=== PATIENT | male | born 1975 | race Caucasian/White ===

== ENCOUNTER 2021-03-30 06:31 | Day surgery (SDC) | payer OTHER ==
[2021-03-30] MEDS ORDERED: LIDOCAINE HCL 2% 100 MG/5 ML IJ ONE (06:32)
[2021-03-30] MEDS ORDERED: DIPRIVAN 200 MG/20 ML IV ONE (08:00)
--- NOTE | 2021-03-30 10:19 | XRAY ---
Indication: Bilateral L4-S1 MBB. Intraoperative fluoroscopy provided for 15 seconds. Single digital spot image submitted for interpretation demonstrates posterior needle tips projecting over the expected left and right L4-S1 nerve roots. Correlate with intraoperative findings/report. Incidental bilateral L4-S1 facet screws.
--- NOTE | 2021-03-30 10:23 | XRAY ---
15 seconds fluoroscopy time in surgery for bilateral L4-S1 MBB..
[2021-03-30] MEDS ORDERED: Lactated Ringers 1,000 ML IV ONE (17:23)
== END 2021-03-30 08:26 | disposition home or self-care (01) ==
LOC: SDC-PAIN 06:31
PROVIDERS: ATTEND Psychiatry & Neurology Pain Medicine
DX: M47.816 Spondylosis without myelopathy or radiculopathy, lumbar region (principal); I10 Essential (primary) hypertension; J45.909 Unspecified asthma, uncomplicated; M19.90 Unspecified osteoarthritis, unspecified site; K21.9 Gastro-esophageal reflux disease without esophagitis; E11.9 Type 2 diabetes mellitus without complications; F32.9 Major depressive disorder, single episode, unspecified; M06.9 Rheumatoid arthritis, unspecified; G62.9 Polyneuropathy, unspecified; Z79.899 Other long term (current) drug therapy
CPT/HCPCS: 64493; 64494; 72020; 77002; 82947; J2704